=== PATIENT | male | born 1970 ===

== ENCOUNTER 2021-03-23 07:43 | Outpatient (CLI) | payer OTHER | END 2021-03-23 07:55 | disposition home or self-care (01) | LOC: TOM 07:43 | PROVIDERS: ATTEND Surgery | DX: K57.90 Diverticulosis of intestine, part unspecified, without perforation or abscess without bleeding (principal); K59.09 Other constipation; C18.6 Malignant neoplasm of descending colon; C18.7 Malignant neoplasm of sigmoid colon; R59.0 Localized enlarged lymph nodes; K62.2 Anal prolapse ==

== ENCOUNTER → 2021-03-23 08:01 | Outpatient (CLI) | payer OTHER ==
[~2021-03-23 08:01] MED LIST: AMLODIPINE BESY10 MG; HYDROCHLOROTHIA25 MG; HYOSCYAMINE0.125 M1 SL; TRAMADOL HCL50 MG PO; [UNRECOGNIZED DRUG - OTHER] PO; [UNRECOGNIZED DRUG - OTHER] PO
== END | disposition home or self-care (01) ==
LOC: LAB 08:01
PROVIDERS: ATTEND Surgery
DX: I10 Essential (primary) hypertension (principal); C18.6 Malignant neoplasm of descending colon; C18.7 Malignant neoplasm of sigmoid colon; R59.0 Localized enlarged lymph nodes; K62.2 Anal prolapse; K59.09 Other constipation; E66.09 Other obesity due to excess calories

== ENCOUNTER 2021-03-25 11:30 | Inpatient (IN) | payer OTHER ==
[~2021-03-25] VITALS: Ht 180.3 cm; Wt 139.3 kg
[2021-03-25] MEDS ORDERED: [UNRECOGNIZED DRUG - OTHER] PO (13:32)
[2021-03-25] MEDS ORDERED: [UNRECOGNIZED DRUG - OTHER] PO (13:33)
[2021-03-31] MEDS ORDERED: AMLODIPINE BESY10 MG (08:39)
[2021-03-31] MEDS ORDERED: HYDROCHLOROTHIA25 MG (08:39)
[2021-04-04] MEDS ORDERED: TRAMADOL HCL50 MG PO (12:06)
[2021-04-04] MEDS ORDERED: HYOSCYAMINE0.125 M1 SL (12:06)
== END 2021-04-04 13:20 | disposition home or self-care (01) | DRG 330 ==
LOC: SURH 03-30 09:51 → O/R 03-30 09:51 → SURH 03-30 10:30 → O/R 03-31 08:11 → SURH 03-31 08:13
PROVIDERS: ADMIT Surgery; ATTEND Surgery
PROC: 0DBN4ZZ Excision of Sigmoid Colon, Percutaneous Endoscopic Approach (ICD-10-PCS; 2021-03-30)
PROC: 07BC4ZX Excision of Pelvis Lymphatic, Percutaneous Endoscopic Approach, Diagnostic (ICD-10-PCS; 2021-03-30)
PROC: 0DJD8ZZ Inspection of Lower Intestinal Tract, Via Natural or Artificial Opening Endoscopic (ICD-10-PCS; 2021-03-30)
PROC: 0DTP4ZZ Resection of Rectum, Percutaneous Endoscopic Approach (ICD-10-PCS; principal; 2021-03-30 10:30)
DX: D12.5 Benign neoplasm of sigmoid colon (principal); Z68.41 Body mass index [BMI] 40.0-44.9, adult; E66.01 Morbid (severe) obesity due to excess calories; Z71.3 Dietary counseling and surveillance; G47.33 Obstructive sleep apnea (adult) (pediatric); I11.9 Hypertensive heart disease without heart failure

== ENCOUNTER 2021-03-29 07:23 | Outpatient (CLI) | payer OTHER ==
[~2021-03-29 07:23] MED LIST changes: -AMLODIPINE BESY10 MG; -HYDROCHLOROTHIA25 MG; -HYOSCYAMINE0.125 M1 SL; -TRAMADOL HCL50 MG PO
== END 2021-03-29 07:29 | disposition home or self-care (01) ==
LOC: NUCLEAR 07:23
DX: C18.6 Malignant neoplasm of descending colon (principal)
CPT/HCPCS: 78816; A9552